=== PATIENT | male | born 1965 | race Caucasian/White ===

== ENCOUNTER 2017-07-31 19:34 | Emergency (ER) | payer SELFPAY ==
[~2017-07-31] VITALS: Ht 167.6 cm; Wt 98.0 kg
[2017-07-31 19:40] VITALS: BP 128/75; PULSE 88; RESP 16; TEMP 99.1; O2SAT 99
[2017-07-31] MEDS ORDERED: AMLO2.5T PO (20:04)
[2017-07-31] MEDS ORDERED: TYLE325T PO (20:04)
[2017-07-31] MEDS ORDERED: LISI30TA4 PO (20:04)
[2017-07-31] MEDS ORDERED: SODIUM CHLOR 0.9% 1000 ML INJ 1,000 ML IV SCH (20:16)
--- NOTE | 2017-07-31 20:22 | PD ---
HPI Chief Complaint: Headache Time Seen by Provider: 20:12 Travel History International Travel<30 days: No Contact w/Intl Traveler<30days: No Traveled to known affect area: No History of Present Illness HPI 51-year-old male here for evaluation of headache. The patient states that he has had a persistent headache for the last 1.5 months. Reports his head pain is right-sided, currently 8 out of 10. He says he has taken Aleve, Tylenol, and aspirin without relief of symptoms. He admits to drinking a moderate amount of alcohol daily. Denies trauma. No visual changes. No paresthesias or motor deficits. No stiffness. No fevers or chills. No nausea. No photophobia. PFSH Past Medical History Hypertension: Yes ?: Not Social History Alcohol Use: Yes Tobacco Use: No Substance Use: No Allergies-Medications (Allergen,Severity, Reaction): Coded Allergies: No Known Allergies (Unverified , 07/31/17) Reported Meds & Prescriptions Reported Meds & Active Scripts Active Reported Tylenol (Acetaminophen) 325 Mg Tab 650 Mg PO Q6H PRN Amlodipine (Amlodipine Besylate) 2.5 Mg Tab 2.5 Mg PO DAILY Lisinopril 30 Mg Tab 30 Mg PO DAILY Review of Systems Except as stated in HPI: all other systems reviewed are Neg Physical Exam Narrative GENERAL: Well-developed, well-nourished, awake, holding head, no apparent distress. SKIN: Focused skin assessment warm/dry. HEAD: Atraumatic. Normocephalic. EYES: Pupils equal, round, 3 mm, reactive to light. EOMI. No papilledema. No scleral icterus. No injection or drainage. ENT: Mucous membranes pink and moist. NECK: Trachea midline. No JVD. CARDIOVASCULAR: Regular rate and rhythm. No murmur appreciated. RESPIRATORY: No accessory muscle use. Clear to auscultation. Breath sounds equal bilaterally. GASTROINTESTINAL: Abdomen soft, non-tender, nondistended. MUSCULOSKELETAL: No obvious deformities. No clubbing. No cyanosis. No edema. NEUROLOGICAL: Awake and alert. No obvious cranial nerve deficits. Motor grossly within normal limits. Normal speech. No focal deficits. PSYCHIATRIC: Appropriate mood and affect; insight and judgment normal. Data Data Last Documented VS Vital Signs Date Time Temp Pulse Resp B/P (MAP) Pulse Ox O2 Delivery O2 Flow Rate FiO2 07/31/17 22:23 102 16 116/69 (85) 07/31/17 20:45 93 Nasal Cannula 2.00 07/31/17 19:40 99.1 Orders Orders Complete Blood Count With Diff (07/31/17 20:16) Comprehensive Metabolic Panel (07/31/17 20:16) Prothrombin Time / Inr (Pt) (07/31/17 20:16) Act Partial Throm Time (Ptt) (07/31/17 20:16) Iv Access Insert/Monitor (07/31/17 20:16) Ecg Monitoring (07/31/17 20:16) Oximetry (07/31/17 20:16) Sodium Chlor 0.9% 1000 Ml Inj (Ns 1000 M (07/31/17 20:16) Sodium Chloride 0.9% Flush (Ns Flush) (07/31/17 20:30) Alcohol (Ethanol) (07/31/17 20:16) Ketorolac Inj (Toradol Inj) (07/31/17 20:30) Metoclopramide Inj (Reglan Inj) (07/31/17 20:30) Ct Brain W/O Iv Contrast(Rout) (07/31/17 ) Sodium Chlor 0.9% 1000 Ml Inj (Ns 1000 M (07/31/17 22:00) Labs Laboratory Tests Test 07/31/17 20:32 White Blood Count 9.0 TH/MM3 Red Blood Count 4.81 MIL/MM3 Hemoglobin 14.4 GM/DL Hematocrit 42.9 % Mean Corpuscular Volume 89.2 FL Mean Corpuscular Hemoglobin 29.9 PG Mean Corpuscular Hemoglobin Concent 33.5 % Red Cell Distribution Width 11.2 % Platelet Count 292 TH/MM3 Mean Platelet Volume 7.4 FL Neutrophils (%) (Auto) 53.9 % Lymphocytes (%) (Auto) 35.8 % Monocytes (%) (Auto) 9.2 % Eosinophils (%) (Auto) 0.5 % Basophils (%) (Auto) 0.6 % Neutrophils # (Auto) 4.9 TH/MM3 Lymphocytes # (Auto) 3.2 TH/MM3 Monocytes # (Auto) 0.8 TH/MM3 Eosinophils # (Auto) 0.0 TH/MM3 Basophils # (Auto) 0.1 TH/MM3 CBC Comment DIFF FINAL Differential Comment Prothrombin Time 10.5 SEC Prothromb Time International Ratio 1.0 RATIO Activated Partial Thromboplast Time 27.3 SEC Blood Urea Nitrogen 16 MG/DL Creatinine 0.87 MG/DL Random Glucose 103 MG/DL Total Protein 7.7 GM/DL Albumin 3.6 GM/DL Calcium Level 8.5 MG/DL Alkaline Phosphatase 105 U/L Aspartate Amino Transf (AST/SGOT) 29 U/L Alanine Aminotransferase (ALT/SGPT) 33 U/L Total Bilirubin 0.3 MG/DL Sodium Level 139 MEQ/L Potassium Level 3.8 MEQ/L Chloride Level 103 MEQ/L Carbon Dioxide Level 27.3 MEQ/L Anion Gap 9 MEQ/L Estimat Glomerular Filtration Rate 93 ML/MIN Ethyl Alcohol Level 319 MG/DL [facility] Medical Decision Making Medical Screen Exam Complete: Yes Emergency Medical Condition: Yes Medical Record Reviewed: Yes Differential Diagnosis Tension headache, cluster headache, migraine headache, SAH, meningitis/ encephalitis unlikely Narrative Course Initial vital signs show heart rate 88, blood pressure 128/75, pulse ox 99% on room air, oral temp of 99.1F. CBC: WBC 9, hemoglobin 14.4, hematocrit 42.9, platelets 292. CMP is unremarkable. Alcohol level is 319. CT head: No acute intracranial abnormality is seen. The patient was given a liter of normal saline IV, IV Reglan, and IV Toradol, and on reassessment he is sleeping comfortably. He is easily arousable and reports that his headache has resolved. There are no focal neurologic findings. No nuchal rigidity on exam. I do not believe that he has a subarachnoid hemorrhage, meningitis, or encephalitis. He will be allowed to sleep off his intoxication in the emergency department. 11:15 PM: The patient is pacing around the room stating he feels much better and wants to go home. Diagnosis Primary Impression: Headache Qualified Codes: R51 - Headache Additional Impression: Alcohol intoxication Qualified Codes: F10.920 - Alcohol use, unspecified with intoxication, uncomplicated [facility] Disposition: 01 DISCHARGE HOME Condition: Stable Willard Stringer MD Jul 31, 2017 20:22
[2017-07-31] MEDS ORDERED: SODIUM CHLORIDE 0.9% FLUSH 10 ML FLUSH IV FLUSH PRN (20:30)
[2017-07-31] MEDS ORDERED: METOCLOPRAMIDE HCL 10 MG/2 ML VIAL IV PUSH ONE (20:30)
[2017-07-31] MEDS ORDERED: KETOROLAC TROMETHAMINE 30 MG/ML (IVP) VIAL IV PUSH ONE (20:30)
[2017-07-31 20:38] LABS: AUTOMATED NEUTROPHIL # 4.9 TH/MM3 (1.8-7.7); BASOPHIL # 0.1 TH/MM3 (0-0.2); BASOPHIL % 0.6 % (0.0-2.0); EOSINOPHIL % 0.5 % (0.0-4.0); HEMATOCRIT 42.9 % (39.0-51.0); HEMO FLAGS DIFF FINAL; LYMPH % 35.8 % (9.0-44.0); LYMPHOCYTE # 3.2 TH/MM3 (1.0-4.8); MEAN CELL VOLUME 89.2 FL (80.0-100.0); MEAN CORPUSCULAR HEMOGLOBIN 29.9 PG (27.0-34.0); MEAN CORPUSCULAR HGB CONC 33.5 % (32.0-36.0); MONO % 9.2 % (0.0-8.0); NEUT % 53.9 % (16.0-70.0); PLATELET COUNT 292 TH/MM3 (150-450); RED BLOOD COUNT 4.81 MIL/MM3 (4.50-5.90); RED CELL DISTRIBUTION WIDTH 11.2 % (11.6-17.2)
[2017-07-31 20:45] VITALS: BP_SYST 111; BP_SYST 122; BP_DIAS 65; BP_DIAS 72; PULSE 114; RESP 16; O2SAT 93
[2017-07-31 20:46] LABS: CHLORIDE 103 MEQ/L (98-107); POTASSIUM 3.8 MEQ/L (3.5-5.1); SODIUM (NA) 139 MEQ/L (136-145)
[2017-07-31 20:50] LABS: ANION GAP 9 MEQ/L (5-15); BICARBONATE 27.3 MEQ/L (21.0-32.0); BLOOD UREA NITROGEN 16 MG/DL (7-18)
[2017-07-31 20:51] LABS: APTT (PATIENT) 27.3 SEC (24.3-30.1); PROTHROMBIN TIME - PATIENT 10.5 SEC (9.8-11.6)
[2017-07-31 20:53] LABS: ALT (GPT) 33 U/L (12-78); AST (GOT) 29 U/L (15-37); GLOMERULAR FILTRATION RATE 93 ML/MIN (>89)
[2017-07-31 20:54] LABS: TOTAL BILIRUBIN ADULT 0.3 MG/DL (0.2-1.0)
[2017-07-31 20:56] LABS: ALKALINE PHOSPHATASE 105 U/L (45-117)
[2017-07-31 21:00] LABS: ALCOHOL 319 MG/DL (0-5)
--- NOTE | 2017-07-31 21:50 | RADRPT ---
EXAM DATE/TIME: 07/31/2017 20:30 [facility] COMPARISON: No previous studies available for comparison. INDICATIONS : High blood pressure. Headache for 1.5 months. RADIATION DOSE: 61.33 CTDIvol (mGy) MEDICAL HISTORY : Hypertension. SURGICAL HISTORY : None. ENCOUNTER: Initial ACUITY: 2 months PAIN SCALE: 8/10 LOCATION: Right cranial TECHNIQUE: Multiple contiguous axial images were obtained of the head. Using automated exposure control and adj ustment of the mA and/or kV according to patient size, radiation dose was kept as low as reasonably a chievable to obtain optimal diagnostic quality images. DICOM format image data is available electro nically for review and comparison. FINDINGS: CEREBRUM: The ventricles are normal for age. No evidence of midline shift, mass lesion, hemorrhage or acute in farction. No extra-axial fluid collections are seen. POSTERIOR FOSSA: The cerebellum and brainstem are intact. The 4th ventricle is midline. The cerebellopontine angle i s unremarkable. EXTRACRANIAL: The visualized portion of the orbits is intact. There does appear to be possible focal thickening at the left eyelid. SKULL: The calvaria is intact. No evidence of skull fracture. CONCLUSION: No acute intracranial abnormality is seen. Yobani Charles MD on July 31, 2017 at 21:46 Board Certified Radiologist. This report was verified electronically.
[2017-07-31] MEDS ORDERED: SODIUM CHLOR 0.9% 1000 ML INJ 1,000 ML IV ONE (22:00)
[2017-07-31 22:23] VITALS: BP 116/69; PULSE 102; RESP 16
[2017-08-01] VITALS: BP 147/72
== END 2017-08-01 00:03 | disposition home or self-care (01) ==
LOC: PHED 19:34
DX: R51 Headache (principal); F10.229 Alcohol dependence with intoxication, unspecified; I10 Essential (primary) hypertension; Y90.8 Blood alcohol level of 240 mg/100 ml or more; Z79.899 Other long term (current) drug therapy
CPT/HCPCS: 70450; 80053; 80307; 85025; 85610; 85730; 96361; 96374; 96375; 99285; J1885; J2765; J7030